=== PATIENT | female | born 1955 | race African-American/Black ===

== ENCOUNTER 2024-01-31 21:53 | Inpatient (IN) | payer MEDICARE, MEDICAID ==
[~2024-01-31] VITALS: Ht 165.1 cm; Wt 77.2 kg
[2024-01-31 23:10] LABS: HEMATOCRIT. 39.1 % (36.0-48.0); HEMOGLOBIN. 12.4 g/dL (12.0-16.0); MEAN CORPUSCULAR HEMOGLOBIN 28.6 pg (28.0-32.0); MEAN CORPUSCULAR HGB CONC 31.7 g/dL (31.0-37.0); MEAN PLATELET VOLUME 9.3 fl (7.4-10.4); PLATELET 251 x1000/uL (130-400); RED BLOOD CELL COUNT 4.34 mill/uL (4.2-5.4)
[2024-01-31] MEDS: ONDANSETRON HCL 4MG/2ML INJ IV STA (23:20)
[2024-01-31] MEDS: MORPHINE SULFATE 4 MG/ML INJ (FOR IV/IM USE) IV ONE (23:43)
[2024-01-31 23:52] LABS: DIFFERENTIAL COMMENT 1; WHITE BLOOD COUNT 40.8 x1000/uL (4.5-11.0)
[2024-01-31 23:54] LABS: CHLORIDE 100 mEq/L (98-107); POTASSIUM 3.1 mEq/L (3.5-5.1); SODIUM 138 mEq/L (136-145)
[2024-01-31 23:55] LABS: CARBON DIOXIDE 31 mEq/L (21-32)
[2024-01-31 23:58] LABS: PROTHROMBIN TIME 11.2 sec (9.6-11.0)
[2024-02-01] LABS: CREATININE 0.6 mg/dL (0.6-1.0); GLUCOSE 143 mg/dL (70-105)
[2024-02-01 00:01] LABS: UREA NITROGEN BLOOD 13 mg/dL (9-23)
[2024-02-01 00:02] LABS: ALANINE AMINOTRANSFERASE 12 IU/L (10-49); ALBUMIN 3.9 g/dL (3.2-4.8); ASPARTATE AMINOTRANSFERASE 15 IU/L (<34)
[2024-02-01 00:03] LABS: BILIRUBIN DIRECT 0.3 mg/dL (<=3.0); BILIRUBIN TOTAL 1.1 mg/dL (0.1-1.0); PROTEIN TOTAL 6.8 g/dL (6.0-8.3)
[2024-02-01] MEDS ORDERED: NALOXONE HCL 0.4MG/ML VIAL IV PRN (00:30)
[2024-02-01 00:38] LABS: TROPONIN I HIGH SENSITIVITY < 4 ng/L (3.0-34)
[2024-02-01 00:49] LABS: CLARITY URINE CLEAR (CLEAR); COLOR URINE YELLOW (YELLOW); GLUCOSE URINE NEGATIVE (NEGATIVE); KETONES URINE TRACE (NEGATIVE); LEUKOCYTE ESTERASE URINE NEGATIVE (NEGATIVE); NITRITE URINE NEGATIVE (NEGATIVE); OCCULT BLOOD URINE NEGATIVE (NEGATIVE); PH URINE 8.5 (4.5-8.0); PROTEIN URINE 3+ (NEGATIVE); SPECIFIC GRAVITY URINE 1.014 (1.005-1.030); UROBILINOGEN URINE 0.2 E.U./dL (0.2-1.0)
[2024-02-01 00:59] LABS: *AMPHETAMINES SCREEN URINE NEGATIVE (NEGATIVE); *BARBITURATES SCREEN URINE NEGATIVE (NEGATIVE); *BENZODIAZEPINES SCREEN URINE NEGATIVE (NEGATIVE); *COCAINE SCREEN URINE NEGATIVE (NEGATIVE); CANNABINOID URINE SCREEN NEGATIVE (NEGATIVE); METHADONE URINE SCREEN NEGATIVE (NEGATIVE); OPIATES URINE SCREEN PRESUMPTIVE POSITIVE (NEGATIVE); PHENCYCLIDINE URINE SCREEN NEGATIVE (NEGATIVE)
[2024-02-01 01:00] LABS: ECSTASY MDMA SCREEN URINE NEGATIVE (NEGATIVE)
[2024-02-01] MEDS: SODIUM CHLORIDE 0.9% 1,000 ML IV SCH (01:26)
[2024-02-01] MEDS: VANCOMYCIN 1.5GM/250ML IV NR (01:26)
[2024-02-01] MEDS: KCL 10MEQ/50ML PREMIX 50 ML IV NR (01:26)
[2024-02-01 03:00] VITALS: BP 157/79; PULSE 79; RESP 21; TEMP 37.28076; TEMP 37.3076; O2SAT 94
[2024-02-01] MEDS: MORPHINE SULFATE 2 MG/ML INJ (NOT FOR IM USE) IV PRN (03:30)
[2024-02-01] MEDS: ACETAMINOPHEN 325MG TABLET PO PRN (03:31)
[2024-02-01] MEDS: ONDANSETRON HCL 4MG/2ML INJ IV PRN (03:31)
[2024-02-01 03:32] LABS: SQUAMOUS EPITHELIAL CELL URINE FEW /lpf (RARE/1+)
[2024-02-01 03:34] LABS: BACTERIA URINE NONE SEEN; RBC URINE 0-2 /hpf (0-2); WBC URINE 0-2 /hpf (0-2)
[2024-02-01 05:02] LABS: PLATELET ESTIMATE NORMAL
[2024-02-01] MEDS ORDERED: PIPERACILLIN/TAZO 3.375G/50ML 50 ML IV SCH (06:00)
[2024-02-01] MEDS ORDERED: HYDR-4009 MT (06:30)
[2024-02-01] MEDS ORDERED: ATEN-42 MT (06:30)
[2024-02-01] MEDS ORDERED: PROC10TA65 MT (06:30)
[2024-02-01] MEDS ORDERED: LEVA15HF6 IH (06:30)
[2024-02-01] MEDS ORDERED: ONDA-241 PO (06:30)
[2024-02-01] MEDS ORDERED: LIDO700A30 TP (06:30)
[2024-02-01] MEDS ORDERED: AMLO5TAB88 MT (06:30)
[2024-02-01 08:00] VITALS: BP 144/86; PULSE 88; RESP 17; TEMP 37.55856; O2SAT 94
[2024-02-01] MEDS ORDERED: PANTOPRAZOLE SODIUM 40 MG/VIAL IV SCH (09:00)
[2024-02-01] MEDS: POTASSIUM CHLORIDE 20MEQ/PACKET PO NR (09:09)
[2024-02-01] MEDS: ENOXAPARIN 40MG/0.4ML SYR SUBCUT SCH (09:09)
[2024-02-01] MEDS: PANTOPRAZOLE SODIUM 40 MG/VIAL IV SCH (09:14)
[2024-02-01 12:00] VITALS: BP 157/97; PULSE 93; RESP 22; TEMP 37.72524; O2SAT 96
[2024-02-01 12:51] LABS: CREATINE KINASE MB FRACTION 1.2 ng/mL (0.5-3.6)
[2024-02-01 12:52] LABS: TROPONIN I HIGH SENSITIVITY 11 ng/L (3.0-34)
[2024-02-01 13:07] LABS: CREATINE KINASE 69 IU/L (34-145)
[2024-02-01 16:00] VITALS: BP 165/78; PULSE 93; RESP 19; TEMP 36.83628; O2SAT 96
[2024-02-01] MEDS: IOHEXOL-350 100 ML BOTTLE ONE (17:01)
[2024-02-01 19:38] VITALS: BP 152/68; PULSE 85; RESP 18; TEMP 37.503; O2SAT 93
[2024-02-01 20:08] LABS: MEAN CORPUSCULAR HEMOGLOBIN 28.2 pg (28.0-32.0); MEAN CORPUSCULAR HGB CONC 31.7 g/dL (31.0-37.0); PLATELET 207 x1000/uL (130-400); RED BLOOD CELL COUNT 4.27 mill/uL (4.2-5.4); RED CELL DISTRIBUTION WIDTH 15.1 % (11.6-14.6); WHITE BLOOD COUNT 35.5 x1000/uL (4.5-11.0)
[2024-02-01 20:10] LABS: DIFFERENTIAL COMMENT 1
[2024-02-01 20:12] LABS: CHLORIDE 100 mEq/L (98-107); POTASSIUM 3.3 mEq/L (3.5-5.1); SODIUM 135 mEq/L (136-145)
[2024-02-01 20:13] LABS: CARBON DIOXIDE 28 mEq/L (21-32)
[2024-02-01 20:14] LABS: CALCIUM 8.7 mg/dL (8.7-10.4)
[2024-02-01 20:18] LABS: CREATININE 0.5 mg/dL (0.6-1.0); GLUCOSE 113 mg/dL (70-105)
[2024-02-01 20:19] LABS: UREA NITROGEN BLOOD 11 mg/dL (9-23)
[2024-02-01 20:21] LABS: CREATINE KINASE 60 IU/L (34-145); CREATINE KINASE MB FRACTION 1.3 ng/mL (0.5-3.6); TROPONIN I HIGH SENSITIVITY 13 ng/L (3.0-34)
[2024-02-01] MEDS: CEFTRIAXONE 1GM/50ML 50 ML IV SCH (20:24)
[2024-02-01] MEDS: ZOLPIDEM TARTRATE 5MG TABLET PO PRN (20:24)
[2024-02-01 20:56] LABS: ANISOCYTOSIS 1+; PLATELET ESTIMATE NORMAL
[2024-02-01] MEDS: METRONIDAZOLE 500 MG PREMIX 100 ML IV SCH (21:26)
[2024-02-01] MEDS: VANCOMYCIN 1.25GM PMX (XELLIA) 250 ML IV SCH (22:48)
[2024-02-01] MEDS ORDERED: IOHEXOL-350 100 ML BOTTLE ONE (23:40)
[2024-02-02] VITALS: BP 152/70; PULSE 84; RESP 22; TEMP 37.28076; O2SAT 94
[2024-02-02 04:00] VITALS: BP 157/68; PULSE 93; RESP 19; TEMP 37.05852; O2SAT 93
[2024-02-02 07:45] LABS: CALCIUM 8.8 mg/dL (8.7-10.4); CARBON DIOXIDE 27 mEq/L (21-32); CHLORIDE 99 mEq/L (98-107); POTASSIUM 3.5 mEq/L (3.5-5.1); SODIUM 134 mEq/L (136-145)
[2024-02-02 07:51] LABS: CREATININE 0.5 mg/dL (0.6-1.0); GLUCOSE 95 mg/dL (70-105); UREA NITROGEN BLOOD 11 mg/dL (9-23)
[2024-02-02 08:00] VITALS: BP 143/65; PULSE 92; RESP 14; TEMP 37.55856; O2SAT 94
[2024-02-02 12:00] VITALS: BP 142/75; PULSE 99; RESP 18; TEMP 37.89192; O2SAT 94
[2024-02-02 16:00] VITALS: BP 148/86; PULSE 90; RESP 18; TEMP 36.89184; O2SAT 94
[2024-02-02] MEDS: METOCLOPRAMIDE HCL 10MG/2ML VIAL IV SCH (18:56)
[2024-02-02] MEDS: MORPHINE SULFATE 4 MG/ML INJ (FOR IV/IM USE) IV NR (18:56)
[2024-02-02 20:00] VITALS: BP 148/59; PULSE 93; RESP 19; TEMP 37.2252; O2SAT 95
[2024-02-03] VITALS: BP 159/78; PULSE 104; RESP 25; TEMP 36.78072; O2SAT 94
[2024-02-03 04:00] VITALS: BP 123/73; PULSE 102; RESP 26; TEMP 37.39188; O2SAT 92
[2024-02-03 07:21] LABS: CHLORIDE 101 mEq/L (98-107); POTASSIUM 2.9 mEq/L (3.5-5.1); SODIUM 139 mEq/L (136-145)
[2024-02-03 07:22] LABS: CALCIUM 8.7 mg/dL (8.7-10.4); CARBON DIOXIDE 27 mEq/L (21-32)
[2024-02-03 07:27] LABS: CREATININE 0.5 mg/dL (0.6-1.0); GLUCOSE 102 mg/dL (70-105); UREA NITROGEN BLOOD 9 mg/dL (9-23)
[2024-02-03 08:00] VITALS: BP 174/77; PULSE 95; RESP 15; TEMP 37.00296; O2SAT 92
[2024-02-03 08:06] LABS: HEMATOCRIT. 36.9 % (36.0-48.0); HEMOGLOBIN. 11.7 g/dL (12.0-16.0); MEAN CORPUSCULAR HEMOGLOBIN 28.4 pg (28.0-32.0); MEAN CORPUSCULAR HGB CONC 31.8 g/dL (31.0-37.0); MEAN CORPUSCULAR VOLUME 89.2 fL (81.0-99.0); MEAN PLATELET VOLUME 10.1 fl (7.4-10.4); PLATELET 183 x1000/uL (130-400); RED BLOOD CELL COUNT 4.14 mill/uL (4.2-5.4); RED CELL DISTRIBUTION WIDTH 14.4 % (11.6-14.6); WHITE BLOOD COUNT 12.4 x1000/uL (4.5-11.0)
[2024-02-03 08:11] LABS: DIFFERENTIAL COMMENT 1
[2024-02-03] MEDS: FAMOTIDINE 20MG/2ML VIAL IV SCH (09:51)
[2024-02-03] MEDS: KCL 20MEQ/100ML PREMIX 100 ML IV SCH (11:23)
[2024-02-03 12:00] VITALS: BP 165/80; PULSE 99; RESP 20; TEMP 36.83628; O2SAT 98
[2024-02-03] MEDS: CLONIDINE 0.1MG TABLET PO PRN (12:12)
[2024-02-03] MEDS: VANCOMYCIN 1.25GM PMX (XELLIA) 250 ML IV SCH (13:44)
[2024-02-03] MEDS ORDERED: KCL 20MEQ/100ML PREMIX 100 ML IV NR (14:00)
[2024-02-03] MEDS: KCL 10MEQ/50ML PREMIX 50 ML IV SCH (15:14)
[2024-02-03 16:00] VITALS: BP 109/67; PULSE 92; RESP 20; TEMP 36.6696; O2SAT 98
[2024-02-03 16:42] LABS: PLATELET ESTIMATE NORMAL
[2024-02-03 20:00] VITALS: BP 107/60; PULSE 87; RESP 20; TEMP 36.44736; O2SAT 98
[2024-02-04] VITALS (7 sets, daily range): BP systolic 108–160; BP diastolic 57–78; PULSE 85–108; RESP 17–32; TEMP 36.6696–36.89184; O2SAT 92–99
[2024-02-04 07:39] LABS: CALCIUM 8.9 mg/dL (8.7-10.4); CARBON DIOXIDE 29 mEq/L (21-32); CHLORIDE 102 mEq/L (98-107); POTASSIUM 3.1 mEq/L (3.5-5.1); SODIUM 141 mEq/L (136-145)
[2024-02-04 07:45] LABS: CREATININE 0.5 mg/dL (0.6-1.0); GLUCOSE 78 mg/dL (70-105); HEMATOCRIT. 35.6 % (36.0-48.0); HEMOGLOBIN. 11.5 g/dL (12.0-16.0); MEAN CORPUSCULAR HEMOGLOBIN 28.9 pg (28.0-32.0); MEAN CORPUSCULAR HGB CONC 32.2 g/dL (31.0-37.0); MEAN CORPUSCULAR VOLUME 89.8 fL (81.0-99.0); MEAN PLATELET VOLUME 9.8 fl (7.4-10.4); PLATELET 174 x1000/uL (130-400); RED BLOOD CELL COUNT 3.97 mill/uL (4.2-5.4); RED CELL DISTRIBUTION WIDTH 14.5 % (11.6-14.6); UREA NITROGEN BLOOD 10 mg/dL (9-23); WHITE BLOOD COUNT 6.7 x1000/uL (4.5-11.0)
[2024-02-04 08:11] LABS: DIFFERENTIAL COMMENT 1
[2024-02-04] MEDS: HYDROCODONE/ACETAMINOPHEN 10/325MG TABLET PO PRN (08:42)
[2024-02-04] MEDS: POTASSIUM CHLORIDE 20MEQ TABLET SR PO NR (11:03)
[2024-02-04] MEDS ORDERED: CEFD300C3 MT (11:32)
[2024-02-04] MEDS ORDERED: ONDA4TAB50 MT (11:32)
[2024-02-04] MEDS ORDERED: POTA-202 PO (11:32)
[2024-02-04] MEDS: IPRATROPIUM/ALBUTEROL 0.5-3(2.5)MG/3ML NEB NEB PRN (12:21)
[2024-02-04 17:54] LABS: PLATELET ESTIMATE NORMAL
== END 2024-02-04 14:21 | disposition home or self-care (01) | DRG 871 ==
LOC: ER 21:53 → 3WST 02-01 02:47
PROVIDERS: ADMIT Internal Medicine; ATTEND Internal Medicine
DX: A41.9 Sepsis, unspecified organism (principal); K85.90 Acute pancreatitis without necrosis or infection, unspecified; J96.10 Chronic respiratory failure, unspecified whether with hypoxia or hypercapnia; C78.02 Secondary malignant neoplasm of left lung; C78.01 Secondary malignant neoplasm of right lung; E87.6 Hypokalemia; I10 Essential (primary) hypertension; T45.1X5A Adverse effect of antineoplastic and immunosuppressive drugs, initial encounter; J44.9 Chronic obstructive pulmonary disease, unspecified; K57.30 Diverticulosis of large intestine without perforation or abscess without bleeding; Z88.0 Allergy status to penicillin; Z79.899 Other long term (current) drug therapy; Z85.3 Personal history of malignant neoplasm of breast; Z85.118 Personal history of other malignant neoplasm of bronchus and lung; Y92.89 Other specified places as the place of occurrence of the external cause
CPT/HCPCS: 80076; 80048; 83690; 85025; 85610; 84484; 71045; 93005; 99285; J2405; J2270; 36415; 71275; 74176; 80202; 80305; 81003; 82550; 82553; 83735; 84145; 93306; 94640; J0696; J1650; J2470; J2765; J3370; J3480; J3490; Q9967